=== PATIENT | male | born 1975 | race Caucasian/White ===

== ENCOUNTER 2018-02-18 09:53 | Emergency (ER) | payer BC ==
[2018-02-18 09:57] VITALS: BP 121/79; PULSE 90; RESP 18; TEMP 98.3
[2018-02-18] MEDS ORDERED: ACETAMINOPHEN TAB 500 MG TAB PO STA (10:12)
[2018-02-18] MEDS ORDERED: DIPH,PERTUS(ACELL)TETVAC-LF 0.5 ML VIAL IM ONE (10:12)
--- NOTE | 2018-02-18 10:16 | ED ---
General Adult HPI - General Chief complaint: Wound/Laceration Stated complaint: Finger Lac/Crush Time Seen by Provider: 02/18/18 10:07 Source: patient Mode of arrival: ambulatory Limitations: no limitations - History of Present Illness Initial comments: Patient is a 42-year-old male who presents with a chief complaint of a laceration over the PIP joint of the third finger on the left hand. Patient states that this injury happened about one hour ago. Patient states he was working on a lawnmower fell off prop and crushed his hand. Patient denies any other injury at this time. Patient does not know when his last tetanus shot was. Patient denies any past medical history or ALLERGIES. - Related Data Previous Rx's Medication Instructions Recorded Ibuprofen [Motrin] 800 mg PO TID #20 tab 02/18/18 Allergies Allergy/AdvReac Type Severity Reaction Status Date / Time No Known Allergies Allergy Verified 02/18/18 09:57 Review of Systems ROS Statement: Those systems with pertinent positive or pertinent negative responses have been documented in the HPI. ROS Other: All systems not noted in ROS Statement are negative. Skin: Reports: as per HPI Past Medical History Past Medical History: No Reported History History of Any Multi-Drug Resistant Organisms: None Reported Additional Past Surgical History / Comment(s): ACL 2010 Left Past Psychological History: No Psychological Hx Reported Smoking Status: Current some day smoker Past Alcohol Use History: Occasional Past Drug Use History: None Reported General Exam Limitations: no limitations General appearance: alert, in no apparent distress Head exam: Present: atraumatic, normocephalic Eye exam: Present: normal appearance ENT exam: Present: normal exam Neck exam: Present: normal inspection Respiratory exam: Present: normal lung sounds bilaterally. Absent: respiratory distress Cardiovascular Exam: Present: regular rate, normal rhythm GI/Abdominal exam: Present: soft. Absent: distended, tenderness Rectal exam: Present: deferred Extremities exam: Present: other (Patient is a 2 cm linear laceration over the PIP joint on the left third digit.) Back exam: Present: normal inspection Neurological exam: Present: alert, oriented X3 Psychiatric exam: Present: normal affect, normal mood Skin exam: Present: warm, dry, other (See musculoskeletal exam) Course Vital Signs 02/18/18 09:56 Temperature 98.3 F Pulse Rate 90 Respiratory 18 Rate Blood Pressure 121/79 O2 Sat by Pulse 100 Oximetry Procedures - Laceration Laceration #1 Consent Obtained: verbal consent Time Out Performed: Yes Indication: laceration Site: hand Description: linear Depth: simple, single layer Anesthetic Used: lidocaine 1% Anesthesia Technique: nerve block Pre-repair: wound explored, irrigated extensively, deep structures intact Type of Sutures: nylon Size of Sutures: 4-0 Technique: simple, interrupted Patient Tolerated Procedure: well Medical Decision Making - Medical Decision Making Patient presents with chief complaint of a laceration to the third digit on the left hand. On initial evaluation, vital signs are stable, patient is in no acute distress. Tetanus status will be updated. Patient currently washing the wound. Patient will be evaluated with an x-ray of the left hand. Patient instructed to remove his wedding ring. Laceration was repaired per the procedure note. 11:54 AM X-rays show no acute fracture or retained foreign bodies. Tetanus shot was updated. Patient tolerated the procedure well. 6 sutures were placed, antibiotic ointment and tube gauze applied. Patient was instructed to have the sutures removed in 7 days, follow-up with primary care in 1-2 days, return to the emergency department if any new symptoms arise. I discussed at length with the patient signs of infection that should prompt immediate return to the emergency department. Patient was instructed to keep the wound clean and dry, do not submerge it in to water, keep it protected while working. Disposition Clinical Impression: Laceration Disposition: HOME SELF-CARE Condition: Good Prescriptions: Ibuprofen [Motrin] 800 mg PO TID #20 tab Is patient prescribed a controlled substance at d/c from ED?: No Referrals: Kira Mcneill MD [Primary Care Provider] - 1-2 days
[2018-02-18] MEDS ORDERED: LIDOCAINE 1% INJ 10MG/ML (20 ML MDV) SQ ONE (10:30)
--- NOTE | 2018-02-18 11:46 | XR ---
EXAMINATION TYPE: XR hand complete LT DATE OF EXAM: 02/18/2018 CLINICAL HISTORY: Left hand pain after crush injury TECHNIQUE: Frontal, lateral and oblique images of the left hand are obtained. COMPARISON: None. FINDINGS: There is no acute fracture/dislocation evident in the left hand. The joint spaces in the l eft hand appear within normal limits. The overlying soft tissue appears unremarkable. IMPRESSION: There is no acute fracture or dislocation in the left hand.
== END 2018-02-18 12:22 | disposition home or self-care (01) ==
LOC: EC 09:53
DX: S61.213A Laceration without foreign body of left middle finger without damage to nail, initial encounter (principal); F17.200 Nicotine dependence, unspecified, uncomplicated; Z23 Encounter for immunization; W28.XXXA Contact with powered lawn mower, initial encounter; Y93.89 Activity, other specified
CPT/HCPCS: 73130; 90715; 99283; 12001; 90471; J2001